=== PATIENT | female | born 1965 | race Hispanic/Latino ===

== ENCOUNTER 2019-10-29 15:23 | Emergency (ER) | payer SELFPAY ==
[~2019-10-29] VITALS: Ht 167.6 cm; Wt 85.0 kg
[2019-10-29] MEDS ORDERED: INDERAL10 M1 PO (15:34)
[2019-10-29] MEDS ORDERED: METFORMIN850 MG PO (15:34)
[2019-10-29] MEDS ORDERED: BACTRIM DS1 TAB PO (16:29)
[2019-10-29] MEDS ORDERED: KEFLEX500 M1 PO (16:29)
[2019-10-29 16:51] VITALS: BP 150/71
== END 2019-10-29 16:51 | disposition home or self-care (01) | DRG 603 ==
LOC: ED 15:23
DX: L02.01 Cutaneous abscess of face (principal); E11.9 Type 2 diabetes mellitus without complications; I10 Essential (primary) hypertension; Z79.84 Long term (current) use of oral hypoglycemic drugs